=== PATIENT | female | born 1950 | race Caucasian/White ===

== ENCOUNTER → 2018-01-29 | Outpatient (CLI) | payer MEDICAID ==
--- NOTE | 2018-01-29 20:29 | US ---
EXAM DESCRIPTION: Breast,Bilateral: Ultrasound CLINICAL HISTORY: 67 yearsFemaleFOLLOW UP COMPARISON: Digital 3-D tomosynthesis diagnostic bilateral breast on this visit. TECHNIQUE: Transcutaneous scanning of the bilateral breast utilizing two-dimensional and Doppler modes. Scanning performed by the metallurgical technician and Dr. Concepcion. FINDINGS: Scanning at the 600 clock position of the right breast 2 cm from the nipple. Hypoechoic mass with well-defined margins and central echogenicity measures 5 x 6 mm. Parallel orientation. Minimal posterior acoustic enhancement. No significant vascularity. Consistent with a lymph node. Scanning at the 500 clock position of the left breast 2 cm of the nipple. Well-defined hypoechoic nodule with well-defined margins and central echogenicity parallel orientation and no posterior features. 3.5 mm diameter. No significant vascular signature. Consistent with a lymph node. Second nodule with similar appearance measures 2.9 x 2.7 cm. No significant vascular signature. Consistent with a lymph node. No distinct cysts or seen bilaterally. No parenchymal edema or calcifications. No skin changes. IMPRESSION: 1. Bi-Rads Category 2: Benign. 2. Please refer to 3-D diagnostic tomosynthesis bilateral breast mammographic examination and report on this visit. The FINDINGS and the FOLLOW-UP plan were reviewed in person with the patient after the examination. Written communication explaining the IMPRESSION and FOLLOW-UP will be mailed to the patient and referring care provider. Electronically signed by: Abelardo Concepcion MD 01/29/2018 8:27 PM CDT Workstation: [id number]
== END | disposition home or self-care (01) ==
LOC: MAMMO 10:00
PROVIDERS: ATTEND Family Medicine
DX: Z12.31 Encounter for screening mammogram for malignant neoplasm of breast (principal)

== ENCOUNTER → 2019-04-28 | Outpatient (CLI) | payer OTHER, MEDICAID ==
--- NOTE | 2019-04-30 16:52 | MAM ---
EXAM DESCRIPTION: 3D Screening BILATERAL : Digital Mammography. CLINICAL HISTORY: 69 years Female Yearly Screening . No complaints. No personal or family history of breast cancer. Childbirth. Postmenopausal. No HRT. Lifetime risk of developing breast cancer (Tyrer-Cuzick model)(%): 8.7. COMPARISON: Bilateral diagnostic digital breast tomosynthesis 01/29/2018. TECHNIQUE: Bilateral CC and MLO projection full-field images, digital tomosynthesis mammographic technique. Bilateral digital 2-D full-field MLO images. CAD not available for tomosynthesis or 2-D images. FINDINGS: The breast parenchymal density pattern is: Scattered areas of fibroglandular density. No skin thickening or nipple retraction. . Bilateral intramammary lymph nodes. Bilateral solitary microcalcifications. No new focal, stellate mass or density, focal asymmetry , and no suspicious microcalcifications bilaterally. Stable mammograms compared to prior study. IMPRESSION: Benign exam. BIRAD CATEGORY: 2 BENIGN FINDINGS. RECOMMENDATIONS: FOLLOW UP: Routine digital bilateral mammographic screening, one year interval from April 2019. Written communication explaining the IMPRESSION and follow-up, will be mailed to the patient and referring health care provider. According to the [employer], yearly mammograms are recommended starting at age 40 and continuing as long as a woman is in good health. Any breast change noted on a breast self-exam should be reported promptly to the patient's healthcare provider. Breast MRI is recommended for women with an approximately 20-25% or greater lifetime risk of breast cancer, including women with a strong family history of breast or ovarian cancer and women who have been treated for Hodgkin's disease. A negative mammographic report should not delay tissue diagnosis in patients with significant clinical history or physical findings. Extremely dense breast tissue limits the sensitivity of digital mammography. Electronically signed by: Abelardo Concepcion MD 04/30/2019 4:50 PM CDT
== END ==
LOC: MAMMO 15:25
DX: Z12.31 Encounter for screening mammogram for malignant neoplasm of breast (principal)